=== PATIENT | female | born 1985 | race Caucasian/White ===

== ENCOUNTER → 2017-07-19 09:30 | Outpatient (CLI) | payer BC, SELFPAY ==
[2017-07-19 09:51] LABS: Basophils # 0.1 K/mm3 (0-0.2); Basophils % 0.7 % (0.1-2.0); Eosinophils # 0.3 K/mm3 (0.0-0.4); Eosinophils % 3.5 % (0.1-12.0); Hematocrit 40.4 % (37.0-47.0); Hemoglobin 13.3 g/dL (12.2-16.2); Lymphocytes # 1.5 K/mm3 (0.7-4.5); Lymphocytes % 19.8 K/mm3 (10-50); Mean Corpuscular Hemoglobin 28.6 pg (27.0-31.2); Mean Corpuscular Volume 86.9 fl (81-99); Mean Platelet Volume 8.4 fl (7.4-10.4); Monocytes # 0.5 K/mm3 (0.1-1.0); Monocytes % 6.6 % (1.7-9.3); Neutrophils # 5.1 K/mm3 (1.8-7.8); Neutrophils % 69.5 % (37.0-80.0); Platelet Count 252 K/mm3 (142-424); Red Blood Count 4.65 M/mm3 (4.20-5.40); Red Cell Distribution Width 12.9 % (11.5-17.5); White Blood Count 7.4 K/mm3 (4.8-10.8)
[2017-07-19 14:34] LABS: Alanine Aminotransferase 28 U/L (12-78); Albumin Level 3.6 gm/dL (3.4-5.0); Alkaline Phosphatase 87 U/L (46-116); Anion Gap 11.5 mEq/L (5-15); Aspartate Amino Transferase 15 U/L (15-37); Bilirubin,Total 0.6 mg/dL (0.2-1.0); Blood Urea Nitrogen 13 mg/dL (7-18); Calcium 8.5 mg/dL (8.5-10.1); Carbon Dioxide 29 mmol/L (21.0-32.0); Chloride 104 mmol/L (98-107); Chol/HDL Ratio 3.7 (1-3.5); Cholesterol 184 mg/dL (140-200); Creatinine,Serum 0.86 mg/dL (0.55-1.02); Estimated Glomerular Filt Rate 76 ml/min (>60); GFR (African American) 93 ML/MIN (>60); Globulin 3.5 gm/dl (1.3-3.2); Glucose 83 mg/dL (74-106); HDL Cholesterol 50 mg/dL (29-89); LDL Cholesterol 118 mg/dL (0-130); Potassium 4.5 mmoL/L (3.5-5.1); Sodium 140 mmol/L (136-145); Thyroid Stimulating Hormone 2.36 uIU/ml (0.358-3.740); Total Protein,Serum 7.1 gm/dL (6.4-8.2); Triglycerides 82 mg/dL (30-200); VLDL Cholesterol 16 mg/dL (0-40)
[2017-07-20 18:29] LABS: Vitamin B12 381 pg/mL (232-1245)
== END ==
PROVIDERS: PCP Internal Medicine Adolescent Medicine; Visit Provider Internal Medicine Adolescent Medicine
DX: R53.83 Other fatigue (principal); E66.01 Morbid (severe) obesity due to excess calories
CPT/HCPCS: 36415; 80053; 80061; 82607; 84443; 85025

== ENCOUNTER → 2020-04-28 10:45 | Outpatient (CLI) | payer BC, SELFPAY ==
--- NOTE | 2020-04-28 10:52 | US_ITS ---
PROCEDURE: US THYROID CLINICAL INDICATION: HYPERTHYROIDISM, MULTINODULAR GOITER COMPARISON: No exams were available for comparison FINDINGS: The isthmus is slightly thickened at 4 mm. The right lobe is 4.7 x 2.1 x 2.7 cm. Left lobe is 4 x 1.5 x 1.7 cm. There is an area of heterogeneous echogenicity in the mid polar region on the right with decreased echogenicity peripherally and a curvilinear area of increased echogenicity centrally with central calcification.. This area measures 13 x 8 mm. The left lobe has an unremarkable appearance. IMPRESSION: Hypoechoic right thyroid nodule with central calcification. This is 1.3 cm TR level 4 moderately suspicious less than 1.5 cm. Recommend six-month follow-up Dictated by: George Siddiqui MD 04/28/2020 12:52 George Siddiqui MD in [place] 04/28/2020 12:52
[2020-04-28 12:26] LABS: Basophils # 0.1 K/mm3 (0-0.2); Basophils % 0.5 % (0.1-2.0); Eosinophils # 0.4 K/mm3 (0.0-0.4); Eosinophils % 3.6 % (0.1-12.0); Hematocrit 43.4 % (37.0-47.0); Hemoglobin 14.3 g/dL (12.2-16.2); Lymphocytes % 17.4 % (10-50); Mean Corpuscular Hemoglobin 29.7 pg (27.0-31.2); Mean Corpuscular Volume 89.8 fl (81-99); Mean Platelet Volume 8.1 fl (7.4-10.4); Monocytes # 0.4 K/mm3 (0.1-1.0); Monocytes % 3.8 % (1.7-9.3); Neutrophils # 8.4 K/mm3 (1.8-7.8); Neutrophils % 74.7 % (37.0-80.0); Platelet Count 301 K/mm3 (142-424); Red Blood Count 4.83 M/mm3 (4.20-5.40); Red Cell Distribution Width 13.8 % (11.5-17.5); White Blood Count 11.2 K/mm3 (4.8-10.8)
[2020-04-28 14:56] LABS: Chloride 107 mmol/L (98-107); Sodium 142 mmol/L (136-145)
[2020-04-28 14:57] LABS: Potassium 4.5 mmoL/L (3.5-5.1)
[2020-04-28 14:59] LABS: Alanine Aminotransferase 14 U/L (12-78); Albumin Level 4.3 g/dl (3.5-5.0); Albumin/Globulin Ratio 1.4 (1.1-1.8); Alkaline Phosphatase 81 U/L (38-126); Anion Gap 16.5 mEq/L (5-15); Aspartate Amino Transferase 18 U/L (14-36); Bilirubin,Total 0.7 mg/dl (0.2-1.3); Blood Urea Nitrogen 18 mg/dl (7-17); Calcium 9.5 mg/dl (8.4-10.2); Carbon Dioxide 23 mmol/L (22.0-30.0); Estimated Glomerular Filt Rate 63 ml/min (>60); GFR (African American) 77 ML/MIN (>60); Globulin 3.1 g/dL (1.3-3.2); Glucose 91 mg/dl (74-100); Total Protein,Serum 7.4 g/dl (6.3-8.2)
[2020-04-28 15:13] LABS: 25-OH Vitamin D, Total 20.9 ng/mL (30-100); Triiodothryronine (T3) Uptake 34 % (23.5-40.5)
[2020-04-28 15:14] LABS: Free Thyroxine Index 2.9 ug/dL (5.93-13.13); T4 (Thyroxine) 8.6 ug/dl (5.53-11.0)
[2020-04-28 15:27] LABS: Thyroid Stimulating Hormone 3.86 uIU/mL (0.465-4.68)
[2020-04-28 16:19] LABS: Vitamin B12 353 pg/mL (239-931)
== END ==
PROVIDERS: PCP Internal Medicine Adolescent Medicine; Visit Provider Internal Medicine Adolescent Medicine
DX: E05.90 Thyrotoxicosis, unspecified without thyrotoxic crisis or storm (principal); E04.2 Nontoxic multinodular goiter; E55.9 Vitamin D deficiency, unspecified
CPT/HCPCS: 36415; 76536; 80053; 82306; 82607; 84436; 84443; 84479; 85025

== ENCOUNTER → 2020-10-24 18:46 | Outpatient (CLI) | payer BC, SELFPAY ==
[2020-10-24 19:24] LABS: Basophils % 0.5 % (0.1-2.0); Eosinophils # 0.3 K/mm3 (0.0-0.4); Eosinophils % 3.6 % (0.1-12.0); Hematocrit 39.4 % (37.0-47.0); Hemoglobin 12.9 g/dL (12.2-16.2); Lymphocytes # 1.7 K/mm3 (0.7-4.5); Lymphocytes % 19.1 % (10-50); Mean Corpuscular HGB Conc 32.6 g/dL (31.8-35.4); Mean Corpuscular Hemoglobin 29.3 pg (27.0-31.2); Mean Corpuscular Volume 89.8 fl (81-99); Mean Platelet Volume 9.8 fl (7.4-10.4); Monocytes # 0.4 K/mm3 (0.1-1.0); Monocytes % 4.9 % (1.7-9.3); Neutrophils # 6.3 K/mm3 (1.8-7.8); Neutrophils % 71.9 % (37.0-80.0); Platelet Count 252 K/mm3 (142-424); Red Blood Count 4.39 M/mm3 (4.20-5.40); Red Cell Distribution Width 13.5 % (11.5-17.5); White Blood Count 8.8 K/mm3 (4.8-10.8)
[2020-10-24 19:26] LABS: Chloride 108 mmol/L (98-107)
[2020-10-24 19:27] LABS: Potassium 4.3 mmoL/L (3.5-5.1); Sodium 140 mmol/L (136-145)
[2020-10-24 19:29] LABS: Alanine Aminotransferase 20 U/L (12-78); Alkaline Phosphatase 84 U/L (38-126); Aspartate Amino Transferase 21 U/L (14-36); Bilirubin,Total 0.6 mg/dl (0.2-1.3); Blood Urea Nitrogen 20 mg/dl (7-17); Estimated Glomerular Filt Rate 71 ml/min (>60); GFR (African American) 86 ML/MIN (>60)
[2020-10-24 19:30] LABS: Albumin Level 4.2 g/dl (3.5-5.0); Albumin/Globulin Ratio 1.5 (1.1-1.8); Anion Gap 12.3 mEq/L (5-15); Carbon Dioxide 24 mmol/L (22.0-30.0); Globulin 2.8 g/dL (1.3-3.2); Glucose 104 mg/dl (74-100); HDL Cholesterol 36 mg/dl (40-60); Triglycerides 143 mg/dl (30-150); VLDL Cholesterol 29 mg/dL (0-40)
[2020-10-24 19:41] LABS: Direct LDL Cholesterol 131.23 mg/dL (100-129)
[2020-10-24 20:10] LABS: Hemoglobin A1C 5.5 % (4.0-6.0)
[2020-10-24 21:03] LABS: Free Thyroxine Index 2.5 ug/dL (5.93-13.13); T4 (Thyroxine) 7.6 ug/dl (5.53-11.0); Triiodothryronine (T3) Uptake 33 % (23.5-40.5)
[2020-10-24 21:08] LABS: Vitamin B12 451 pg/mL (239-931)
[2020-10-24 21:15] LABS: Chol/HDL Ratio 5.7 (1-3.5)
[2020-10-24 21:16] LABS: Cholesterol 206 mg/dl (140-200); Thyroid Stimulating Hormone 6.57 uIU/mL (0.465-4.68)
== END ==
PROVIDERS: Visit Provider Internal Medicine Adolescent Medicine
DX: E05.90 Thyrotoxicosis, unspecified without thyrotoxic crisis or storm (principal); E66.01 Morbid (severe) obesity due to excess calories; E55.9 Vitamin D deficiency, unspecified; Z86.39 Personal history of other endocrine, nutritional and metabolic disease
CPT/HCPCS: 80053; 80061; 82306; 82607; 83036; 84436; 84443; 84479; 85025

== ENCOUNTER → 2021-01-31 09:01 | Outpatient (CLI) | payer BC, SELFPAY ==
[2021-01-31 11:47] LABS: Triiodothryronine (T3) Uptake 31 % (23.5-40.5)
[2021-01-31 11:48] LABS: Free Thyroxine Index 2.9 ug/dL (5.93-13.13); T4 (Thyroxine) 9.3 ug/dl (5.53-11.0)
[2021-01-31 12:02] LABS: Thyroid Stimulating Hormone 0.41 uIU/mL (0.465-4.68)
== END ==
PROVIDERS: Visit Provider Internal Medicine Adolescent Medicine
DX: E05.90 Thyrotoxicosis, unspecified without thyrotoxic crisis or storm (principal)
CPT/HCPCS: 84436; 84443; 84479

== ENCOUNTER → 2021-04-30 06:45 | Outpatient (CLI) | payer BC, SELFPAY ==
--- NOTE | 2021-04-30 07:17 | NM_ITS ---
PROCEDURE: NM THYROID IMAGE UPTAKE CLINICAL INDICATION: THYROID NODULE COMPARISON: US US THYROID from 04/28/2020 FINDINGS: Dose: 342 uCi I 123 The 7 hour uptake is 16.1 percent. This is upper limits of normal with normal between 3 in 16 percent. 24 hour uptake at 25.8 percent. Normal limits is between 10 and 35 percent. Images obtained demonstrate slight overall decrease in activity in the left lobe of the thyroid gland. There is also decreased activity in the upper pole of the right lobe of the thyroid gland which could correspond to the nodular region noted on the ultrasound. Therefore, would suggest ultrasound-guided FNA of the right-sided thyroid nodule. IMPRESSION: 1. 7 hour uptake upper limits of normal with normal 24 hour uptake. 2. Decreased activity upper pole of the right lobe of the thyroid gland which may correspond to the thyroid nodule noted on the recent ultrasound. Therefore, suggest ultrasound-guided FNA of the suspicious nodule in the upper pole on the right Dictated by: George Siddiqui MD 05/01/2021 07:40 George Siddiqui MD in [place] 05/01/2021 07:40
== END ==
PROVIDERS: PCP Internal Medicine Adolescent Medicine; Visit Provider Internal Medicine Adolescent Medicine
DX: E05.90 Thyrotoxicosis, unspecified without thyrotoxic crisis or storm (principal)
CPT/HCPCS: 78014; A9516

== ENCOUNTER → 2021-06-25 13:48 | Outpatient (CLI) | payer BC, SELFPAY ==
--- NOTE | 2021-06-25 13:48 | US_ITS ---
FINAL REPORT CLINICAL HISTORY: follow up thyroid nodules FINDINGS: THYROID ULTRASOUND The right lobe of the thyroid measures 4.4 x 2.7 x 1.3 cm. The left lobe of the thyroid measures 3.7 x 1.7 x 1.0 cm. A right-sided thyroid nodule measures 1.4 x 1.4 x 1.0 cm with calcifications. This nodule is consistent with a TI-RADS 4. IMPRESSION: TI-RADS 4 nodule in the right lobe of the thyroid. Recommend follow-up in 1 year. Reviewed, Interpreted and Dictated by Omari Bustamante MD Transcribed by Dexter Veliz Authenticated by Omari Bustamante MD on 06/25/2021 04:58:[address] [facility]
== END ==
LOC: RAD 13:48
PROVIDERS: PCP Internal Medicine Adolescent Medicine; Visit Provider Student in an Organized Health Care Education/Training Program
DX: E04.1 Nontoxic single thyroid nodule (principal)
CPT/HCPCS: 76536

== ENCOUNTER 2022-06-09 09:56 | Emergency (ER) | payer BC, SELFPAY ==
[2022-06-09 09:57] VITALS: BP 145/94; PULSE 89; RESP 17; TEMP 36.6; O2SAT 99; BMI 47.2
--- NOTE | 2022-06-09 10:56 | HMH.EDGENADL ---
Discharge Plan Disposition Patient Disposition: Home, Self-Care Condition: Good Prescriptions Prescriptions: New amoxicillin-pot clavulanate [Augmentin] 500-125 mg tablet 1 tab PO Q8H Qty: 30 0RF No Action bupropion HCl 300 mg tablet extended release 24 hr PO atenolol 25 mg tablet 25 mg PO DAILY Label Comments: TAKE 1 TABLET BY MOUTH ONCE DAILY topiramate 100 mg tablet 100 mg PO DAILY Referrals Follow up/Referrals: Tom Echols MD [Primary Care Provider] - See instructions Activity Restrictions/Add. Instructions Additional Instructions/Restrictions: Augmentin as prescribed. Continue ibuprofen for pain. Follow-up with your dentist and primary care provider, call for appointment. Clinical Impressions Clinical Impression: Acute facial pain, Pain, dental, Sinusitis Instructions Patient Instructions: DI for Sinusitis, DI for Dental Pain Discharge ED Provider: Alvarado Dc General Adult HPI General Chief complaint: PAIN Stated complaint: Pain in ear and right side face pain Time Seen by Provider: 06/09/22 10:47 Mode of Arrival: Ambulatory Limitations: No Limitations Description of Symptoms (Recalled from ER Triage Doc. by RN): PT REPORTS RIGHT SIDE FACIAL PAIN/ PRESSURE AND RIGHT EAR PAIN SINCE FRIDAY History of Present Illness HPI narrative: Patient complains of right-sided facial pain, jaw pain, earache since Friday. Also says that she has nasal discharge and this morning when she blew her nose it was bloody. No loss of hearing. No fever. Pain in her jaw does increase with eating. No facial swelling. States the pain radiates around behind her right ear and down the right side of her neck. She has been taking Tylenol and ibuprofen for her symptoms. Related Data Home Medications Medication Instructions Recorded Confirmed atenolol 25 mg tablet 25 mg PO DAILY 06/19/21 06/19/21 bupropion HCl 300 mg 24 hr tablet, tab PO 06/19/21 06/19/21 extended release topiramate 100 mg tablet 100 mg PO DAILY 06/19/21 06/19/21 Previous Rx's Medication Instructions Recorded amoxicillin 500 mg-potassium 1 tab PO Q8H #30 tabs 06/09/22 clavulanate 125 mg tablet (Augmentin) Allergies Allergy/AdvReac Type Severity Reaction Status Date / Time CODEINE Allergy Unknown Uncoded 06/10/17 15:36 [facility] Disclaimer: The information contained in this section may have been updated after the patient was seen, as this information can be updated by other users. Medical History (Updated 06/09/22 @ 11:05 by Alvarado Dc MD) Depression Migraines Family History (Updated 06/09/22 @ 10:11 by Iris Barraza RN) Other No significant family history Social History (Updated 06/09/22 @ 10:11 by Iris Barraza RN) Smoking Status: Never smoker alcohol intake: current current occupational status: employed Travel in the last 8 weeks: None ROS Obtained: Yes Systems reviewed as appropriate & no additional complaints except as documented Constitutional Constitutional: Denies fever(s) ENT Ears, Nose, Mouth, and Throat: Reports dental pain, Reports epistaxis, Reports facial pain, Denies lip swelling, Reports nasal discharge, Reports neck pain, Denies sore throat and Denies throat swelling Musculoskeletal Musculoskeletal: Reports neck pain Allergic/Immunologic Allergic/Immunologic: Denies lip swelling and Denies throat swelling Physical Exam General General appearance: alert and in no apparent distress Head Head exam: atraumatic, normocephalic and normal inspection Eye Eye exam: Present normal appearance and EOMI; Absent conjunctival injection or discharge Expanded ENT Exam Comment: Diffuse tenderness right cheek in the malar area, right mandible, right lateral neck, right postauricular area. Pain with pressure applied to right tragus. No pain with manipulation of right pinna. No pain with otoscope insertion. No facial swelling or erythema. No
[2022-06-09 11:16] VITALS: BP 168/93; PULSE 70; RESP 18; TEMP 36.6; O2SAT 100
== END 2022-06-09 11:17 | disposition home or self-care (01) ==
PROVIDERS: Emergency Provider Emergency Medicine; PCP Internal Medicine Adolescent Medicine
DX: H92.01 Otalgia, right ear (principal); M54.2 Cervicalgia; K08.89 Other specified disorders of teeth and supporting structures; R68.84 Jaw pain; R04.0 Epistaxis; G43.909 Migraine, unspecified, not intractable, without status migrainosus; F32.A Depression, unspecified; Z88.5 Allergy status to narcotic agent
CPT/HCPCS: 99283

== ENCOUNTER 2023-08-31 12:48 | Emergency (ER) | payer BC, SELFPAY ==
[2023-08-31 12:49] VITALS: BP 126/93; PULSE 87; RESP 15; TEMP 36.8; O2SAT 98; BMI 48.9
--- NOTE | 2023-08-31 13:04 | ECG_ITS ---
APPROVED REPORT Exam: Resting ECG HR:83 bpm ECG Measurements Heart Rate 83 AXES MI 185 P 69 QRSd 86 QRS 77 QT 357 T 69 QTc 397 Conclusion SINUS RHYTHM NORMAL ECG Electronically signed by : JANEL MAYNARD, 09/02/2023 02:08:17
--- NOTE | 2023-08-31 13:25 | PC.NURSE ---
DR AZEVEDO AT BEDSIDE
[2023-08-31 13:30] VITALS: BP 124/82; PULSE 78; RESP 20; O2SAT 99
--- NOTE | 2023-08-31 13:36 | ED_ITS ---
Discharge Plan Disposition Patient Disposition: Home, Self-Care Prescriptions Prescriptions: No Action bupropion HCl 300 mg tablet extended release 24 hr PO atenolol 25 mg tablet 25 mg PO DAILY Patient Comments: TAKE 1 TABLET BY MOUTH ONCE DAILY topiramate 100 mg tablet 100 mg PO DAILY amoxicillin-pot clavulanate [Augmentin] 500-125 mg tablet 1 tab PO Q8H Qty: 30 0RF Referrals Follow up/Referrals: Tom Echols MD [Primary Care Provider] - See instructions Activity Restrictions/Add. Instructions Additional Instructions/Restrictions: At this time it was felt you are safe to be discharged home. If new or worsening symptoms please do not hesitate to return the emergency department. Please follow-up with Dr. Echols as discussed. Clinical Impressions Clinical Impression: Drug side effects, Acute shoulder pain Discharge ED Provider: Gigi Matthews General Adult HPI General Chief complaint: PAIN Stated complaint: elevated bp, rt arm and neck pain, headache Time Seen by Provider: 08/31/23 13:07 History of Present Illness HPI narrative: Patient is a 38-year-old female with past medical history of hypothyroidism, recent initiation of blood pressure medicine presents emergency department for evaluation of weakness and shoulder pain. History is obtained by patient at bedside. Patient has had dry mouth as of late, on patient's phentermine was discontinued when she was found to have significant hypertension at her PCP Dr. Echols's office. She was initiated on hydrochlorothiazide and amlodipine for which doses have been titrated over the last 48 hours. She has had global weakness, significant tiredness compared to baseline. She awoke this morning with right shoulder pain that radiates down the posterior aspect of her right upper extremity. No speech difficulty, no reported chest pain, no other acute complaints at this time. Related Data Home Medications Medication Instructions Recorded Confirmed atenolol 25 mg tablet 25 mg PO DAILY 06/19/21 06/19/21 bupropion HCl 300 mg 24 hr tablet, tab PO 06/19/21 06/19/21 extended release topiramate 100 mg tablet 100 mg PO DAILY 06/19/21 06/19/21 Previous Rx's Medication Instructions Recorded amoxicillin 500 mg-potassium 1 tab PO Q8H #30 tabs 06/09/22 clavulanate 125 mg tablet (Augmentin) Allergies Allergy/AdvReac Type Severity Reaction Status Date / Time CODEINE Allergy Unknown Uncoded 06/10/17 15:36 [facility] Disclaimer: The information contained in this section may have been updated after the patient was seen, as this information can be updated by other users. Medical History (Updated 08/31/23 @ 14:40 by Gigi Matthews MD) Migraines Depression Family History (Updated 06/09/22 @ 10:11 by Iris Barraza, RN) Other No significant family history Social History (Updated 06/09/22 @ 10:11 by Iris Barraza RN) Smoking Status: Former smoker alcohol intake: current current occupational status: employed Travel in the last 8 weeks: None ROS Obtained: Yes Systems reviewed as appropriate & no additional complaints except as documented Physical Exam General General appearance: alert and in no apparent distress Head Head exam: atraumatic and normocephalic Eye Eye exam: Present PERRL and EOMI ENT ENT exam: Present mucous membranes moist Neck Neck exam: Present normal inspection Chest Chest inspection: Present normal inspection and symmetric chest wall rise Respiratory Respiratory exam: Present normal lung sounds bilaterally; Absent respiratory distress Cardiovascular Cardiovascular exam: Present regular rate and normal rhythm Abdominal Exam Abdominal exam: Present soft; Absent tenderness Extremities Exam Extremities exam: Present normal inspection Neurological Exam Neurological exam: Present alert and CN II-XII intact; Absent motor sensory deficit Psychiatric Psychiatric exam: Present normal affect Skin Skin exam: Present warm and dry Medical Decision Making Carlos Alberto Inquiry Pt receiving controlled substance: No Vital Signs: 08/31/23 12:49 08/31/23 13:30 08/31/23 14:00 Temperature 98.2 F Temperature Source Oral Pulse Rate 78 86 Pulse Rate [Right] 87 Respiratory Rate 15 20 20 Blood Pressure 124/82 120/78 Blood Pressure [Right Arm] 126/93 H Blood Pressure Mean 102 92 Blood Pressure Mean [Right Arm] 104 Blood Pressure Source [Right Arm] Automatic Cuff 02 Sat by Pulse Oximetry 98 99 99 Oxygen Delivery Method Room Air 08/31/23 14:41 Temperature 98.1 F Temperature Source Oral Pulse Rate 84 Pulse Rate [Right] Respiratory Rate 20 Blood Pressure 106/64 L Blood Pressure [Right Arm] Blood Pressure Mean Blood Pressure Mean [Right Arm] Blood Pressure Source [Right Arm] 02 Sat by Pulse Oximetry Oxygen Delivery Method Room Air Lab Data Lab Results 08/31/23 13:40: WBC 9.9, RBC 5.11, Hgb 15.2, Hct 45.8, MCV 89.5, MCH 29.7, MCHC 33.2, RDW 13.1, Plt Count 291, MPV 8.8, Neut % (Auto) 73.7, Lymph % (Auto) 17.1, [place] % (Auto) 4.5, Eos % (Auto) 3.7, Baso % (Auto) 1.0, Neut # (Auto) 7.3, Lymph # (Auto) 1.7, [place] # (Auto) 0.4, Eos # (Auto) 0.4, Baso # (Auto) 0.1, Sodium 138, Potassium 3.9, Chloride 106, Carbon Dioxide 27, Anion Gap 8.9, BUN 20 H, Creatinine 0.90, Estimated Creat Clear 82, Estimated GFR 70, Est GFR ( Amer) 85, Glucose 124 H, Calcium 9.1, Magnesium 2.0, Total Bilirubin 0.7, AST 23, ALT 21, Alkaline Phosphatase 75, Total Protein 7.5, Albumin 4.3, Globulin 3.2, Albumin/Globulin Ratio 1.3, Serum HCG, Qual Negative 08/31/23 13:40 08/31/23 13:40 Orders (Tests/Meds): ED MEDICATIONS Discontinued Medications Generic Name Dose Route Start Last Admin Trade Name Ezekiel PRN Reason Stop Dose Admin Acetaminophen 1,000 mg 08/31/23 13:34 08/31/23 13:57 Acetaminophen 1,000mg/100ml Vial IV 08/31/23 13:35 1,000 mg ONCE ONE Administration Lactated Ringer's 1,000 mls @ 999 mls/hr 08/31/23 13:34 08/31/23 14:01 Lactated Ringer's 1000 Ml Bag IV 08/31/23 14:34 999 mls/hr .Q1H1M ONE Administration Ketorolac Tromethamine 30 mg 08/31/23 13:34 08/31/23 14:01 Ketorolac 30mg/Ml Vial IM 08/31/23 13:35 Not Given ONCE ONE Ketorolac Tromethamine 30 mg 08/31/23 13:52 08/31/23 13:57 Ketorolac 30mg/Ml Vial IV 08/31/23 13:53 30 mg ONCE ONE Administration Methocarbamol 1,000 mg 08/31/23 13:36 08/31/23 14:00 Methocarbamol 500mg Tablet PO 08/31/23 13:37 1,000 mg ONCE ONE Administration ORDERS Category Date Time Status CBC w/Auto Diff [Complete Blood Count Auto Diff] Stat Lab 08/31/23 13:40 Completed CMP [Comprehensive Metabolic Panel] Stat Lab 08/31/23 13:40 Completed HCG Qualitative, Serum Stat Lab 08/31/23 13:40 Completed MG [Magnesium] Stat Lab 08/31/23 13:40 Completed ECG Data Tracing #1: Independently interpreted by me, rate is 83, rhythm is regular, axis is normal, no ST elevation in anatomical contiguous leads. QTc 397. Medical Decision Narrative: In summary patient is a 38-year-old female past medical history described above who presents emergency department for evaluation of global weakness, shoulder pain in the setting of recent medication modification. Patient is hemodynamically stable nontoxic-appearing upon arrival, afebrile, normal blood pressure. With respect to patient's fatigue she has been taken off of the stimulant and has been initiated on multiple blood pressure medications that been titrated over the last 48 hours which likely explain patient's symptoms. Patient's recent T4 is within normal limits and will not be repeated however given the possibility of significant electrolyte derangement workup will be conducted with hematologic labs. EKG will be obtained. Crystalloid bolus will be administered. With expected shoulder pain, patient has a nonfocal neurologic exam. Workup with imaging was considered but will be deferred. It is exceptionally unlikely that patient has a vertebral artery dissection given her age group and lack of cardiovascular comorbidities. Given this differential includes muscle strain, dystonia, among others. Patient does have a history of cervical tension headaches previously. Given this empiric treatment will be conducted with Tylenol, Toradol, methocarbamol. Workup reviewed by me, hematologic labs are nonactionable. hCG negative. Given this I suspect patient's constellation of symptoms are secondary to medication side effect as well as musculoskeletal pain. Patient is appropriate for discharge at this time we will follow-up with Dr. Echols on Friday and was encouraged to continue taking her medications as prescribed at home. Critical Care Critical Care Time Critical Care Time: No
[2023-08-31 13:53] LABS: Basophils # 0.1 K/mm3 (0-0.2); Eosinophils # 0.4 K/mm3 (0.0-0.4); Eosinophils % 3.7 % (0.1-12.0); Hematocrit 45.8 % (37.0-47.0); Hemoglobin 15.2 g/dL (12.2-16.2); Lymphocytes # 1.7 K/mm3 (0.7-4.5); Lymphocytes % 17.1 % (10-50); Mean Corpuscular HGB Conc 33.2 g/dL (31.8-35.4); Mean Corpuscular Hemoglobin 29.7 pg (27.0-31.2); Mean Corpuscular Volume 89.5 fl (81-99); Mean Platelet Volume 8.8 fl (7.4-10.4); Monocytes # 0.4 K/mm3 (0.1-1.0); Monocytes % 4.5 % (1.7-9.3); Neutrophils # 7.3 K/mm3 (1.8-7.8); Neutrophils % 73.7 % (37.0-80.0); Platelet Count 291 K/mm3 (142-424); Red Blood Count 5.11 M/mm3 (4.20-5.40); Red Cell Distribution Width 13.1 % (11.5-17.5); White Blood Count 9.9 K/mm3 (4.8-10.8)
[2023-08-31 13:54] LABS: Chloride 106 mmol/L (98-107); Sodium 138 mmol/L (136-145)
[2023-08-31 13:55] LABS: Potassium 3.9 mmoL/L (3.5-5.1)
[2023-08-31 13:57] LABS: Alanine Aminotransferase 21 U/L (12-78); Albumin Level 4.3 g/dl (3.5-5.0); Albumin/Globulin Ratio 1.3 (1.1-1.8); Alkaline Phosphatase 75 U/L (38-126); Anion Gap 8.9 mEq/L (5-15); Aspartate Amino Transferase 23 U/L (14-36); Bilirubin,Total 0.7 mg/dl (0.2-1.3); Blood Urea Nitrogen 20 mg/dl (7-17); Carbon Dioxide 27 mmol/L (22.0-30.0); Creatinine Clearance Estimated 82 mL/min (50-200); Estimated Glomerular Filt Rate 70 ml/min (>60); GFR (African American) 85 ML/MIN (>60); Globulin 3.2 g/dL (1.3-3.2); Total Protein,Serum 7.5 g/dl (6.3-8.2)
[2023-08-31] MEDS: ACETAMINOPHEN 1,000MG/100ML VIAL 1000 MG IV (13:57)
[2023-08-31] MEDS: KETOROLAC 30MG/ML VIAL 30 MG IV (13:57)
[2023-08-31 13:58] LABS: Calcium 9.1 mg/dl (8.4-10.2); Glucose 124 mg/dl (74-100)
[2023-08-31 14:00] VITALS: BP 120/78; PULSE 86; RESP 20; O2SAT 99
[2023-08-31] MEDS: METHOCARBAMOL 500MG TABLET 1000 MG PO (14:00)
[2023-08-31 14:01] LABS: HCG Qualitative, Serum Negative (Negative)
[2023-08-31] MEDS: LACTATED RINGERS 1000ML 1,000 ML 999 ML IV (14:01)
--- NOTE | 2023-08-31 14:13 | PC.NURSE ---
ROUNDED ON PT, WARM BLANKET PROVIDED. CALL LIGHT WITHIN REACH
--- NOTE | 2023-08-31 14:39 | PC.NURSE ---
I rounded on pt. she stated she was ok. no new requests at the time. family member in the room as well.
[2023-08-31 14:41] VITALS: BP 106/64; PULSE 84; RESP 20; TEMP 36.7; O2SAT 97
== END 2023-08-31 14:47 | disposition home or self-care (01) ==
PROVIDERS: Emergency Provider Emergency Medicine; PCP Internal Medicine Adolescent Medicine
DX: M25.511 Pain in right shoulder (principal); T50.995A Adverse effect of other drugs, medicaments and biological substances, initial encounter; I10 Essential (primary) hypertension
CPT/HCPCS: 80053; 83735; 84703; 85025; 93005; 96361; 96372; 96374; 96375; 99284; J0131